=== PATIENT | male | born 1970 | race Caucasian/White ===

== ENCOUNTER 2016-10-07 11:02 | Emergency (ER) | payer OTHER ==
[~2016-10-07] VITALS: Ht 180.3 cm; Wt 110.7 kg
[~2016-10-07 11:02] MED LIST: PENI-82 PO
[2016-10-07 11:11] VITALS: TEMP 36.5; Ht 180.3 cm; Wt 110.7 kg
[2016-10-07] MEDS ORDERED: SODIUM CHLORIDE 0.9% 1000ML 1,000 ML IV STA (11:35)
[2016-10-07 11:44] VITALS: O2SAT 94
[2016-10-07] MEDS ORDERED: PAXIL PO (11:44)
[2016-10-07] MEDS ORDERED: TRAZODONE PO (11:44)
[2016-10-07] MEDS ORDERED: RISPERIDONE PO (11:44)
[2016-10-07] MEDS ORDERED: PRAZOSIN PO (11:44)
[2016-10-07] MEDS ORDERED: GABAPENTIN PO (11:44)
[2016-10-07 11:59] LABS: BASO % 0.2 %; BASO ABS # 0.01 K/uL (0-0.2); COMPLETE YES; EOS % 1.5 %; HEMATOCRIT 40.5 % (42-52); IG% 0.4 %; LYMPH % 27.2 %; LYMPH ABS # 1.28 K/uL (1.2-3.4); MEAN CELL VOLUME 85.4 fL (80-100); MEAN CORPUSCULAR HEMOGLOBIN 29.7 pg (25-34); MEAN CORPUSCULAR HGB CONC 34.8 g/dl (32-36); MEAN PLATELET VOLUME 10.3 fL (7.4-10.4); MONO % 7.2 %; NEUT % 63.5 %; PLATELET COUNT 190 K/uL (130-400); RED BLOOD COUNT 4.74 M/uL (4.7-6.1); WHITE BLOOD COUNT 4.71 K/uL (4.8-10.8)
[2016-10-07 12:15] LABS: BUN/CREATININE RATIO 14.7 (10-20); CALCIUM 8.7 mg/dl (8.5-10.1); CREATININE 1.2 mg/dl (0.60-1.40); POTASSIUM 4.1 mmol/L (3.5-5.1)
[2016-10-07 12:32] LABS: THYROID STIMULATING HORMONE 1.15 uIu/ml (0.300-4.500)
[2016-10-07 12:54] LABS: URINE APPEARANCE CLEAR (CLEAR); URINE BILIRUBIN NEG (NEG); URINE COLOR YELLOW; URINE NITRITE NEG (NEG); URINE PH 5.5 (4.5-7.5); URINE SPECIFIC GRAVITY 1.003 (1.000-1.030); UROBILINOGEN NEG (NEG)
[2016-10-07 12:59] LABS: MANUAL MICROSCOPIC REQUIRED? NO; REVIEW REQ? NO
[2016-10-07 14:15] VITALS: BP 125/76; PULSE 70; O2SAT 96
--- NOTE | 2016-10-07 17:16 | EMERGENCY ROOM VISIT NOTE ---
History Report prepared by Za: Ryan Rodriguez Under the Supervision of: Dr. Kashmir Fragoso M.D. First contact with patient: 11:35 Chief Complaint: SYNCOPE Stated Complaint: SYNCOPE Nursing Triage Summary: Alert and oriented. History of Present Illness The patient is a 46 year old male who presents to the Emergency Room with complaints of a syncopal episode that occurred prior to arrival this morning. The patient was here to get routine blood work done when he passed out. He notes that he had his blood taken and then went to stand up and started to get dizzy. He sat down for a bit, and then passed out, but he does not remember passing out. The patient was told that he passed out for approximately a minute. The patient has no syncope history. The patient did feel a bit off before passing out for a couple minutes. He is now starting to feel better. He has not had any recent illnesses or symptoms. The patient has not been around anyone who has been sick. He has not had any recent long car trips. The patient did not eat anything this morning. Pt denies headache, fevers, chills, diaphoresis, visual changes, neck pain, chest pain, breathing difficulties, nausea, vomiting, abdominal pain, back pain, melena, hematochezia, urinary symptoms, numbness, current weakness, lymphadenopathy, rash, or other complaints. Source of History: patient Onset: Prior to arrival this morning Position: other (global - syncopal episode) Symptom Intensity: passed out for around a minute Timing: other (episode) Associated Symptoms: + LOC Note: Associated symptoms: Dizziness prior to syncopal episode. Review of Systems See HPI for pertinent positives and negatives. A total of ten systems were reviewed and were otherwise negative. Past Medical & Surgical Surgical Problems: (1) Hx of appendectomy (2) S/P appendectomy Family History Diabetes mellitus Social History Smoking Status: Never Smoker Smokeless Tobacco Use: No Alcohol Use: none Marital Status: Occupation Status: student Current/Historical Medications Scheduled [Gabapentin], 1 TAB PO DAILY [Paxil], 1 TAB PO DAILY [Prazosin], 1 TAB PO HS [Risperidone], 1 TAB PO DIRECTED [Trazodone], 1 TAB PO HS Allergies Coded Allergies: No Known Allergies (Unverified , 10/07/16) Physical Exam Vital Signs Date Time Temp Pulse Resp B/P Pulse Ox O2 Delivery O2 Flow Rate FiO2 10/07/16 14:15 70 16 125/76 96 10/07/16 12:43 76 16 131/79 98 Room Air 10/07/16 11:44 94 Room Air 10/07/16 11:40 62 10/07/16 11:20 66 117/62 72 110/70 76 109/68 10/07/16 11:11 36.5 66 20 117/62 94 Room Air Physical Exam GENERAL: Awake, alert, well appearing, no distress HENT: Normocephalic, atraumatic. TM's normal. Oropharynx unremarkable. EYES: PERRL. EOMI. Normal conjunctiva. Sclera non-icteric. NECK: Supple. No nuchal rigidity. FROM. No JVD or bruit. RESPIRATORY: CTA CARDIAC: RRR. No murmur. ABDOMEN: Soft, non distended. No tenderness to palpation. No rebound or guarding. No masses. RECTAL: Deferred. MUSCULOSKELETAL: Unremarkable. No edema. No discoloration. Gross motor strength symmetric. NEURO: Cranial nerves 2-12 grossly intact. Normal sensorium. No sensory or motor deficits noted. Speech normal. No pronator drift. SKIN: No rash or jaundice noted. LYMPH: No adenopathy. Medical Decision & Procedures Laboratory Results 10/07/16 11:50 Red Blood Count 4.74, Mean Corpuscular Volume 85.4, Mean Corpuscular Hemoglobin 29.7, Mean Corpuscular Hemoglobin Concent 34.8, Mean Platelet Volume 10.3, Neutrophils (%) (Auto) 63.5, Lymphocytes (%) (Auto) 27.2, Monocytes (%) (Auto) 7.2, Eosinophils (%) (Auto) 1.5, Basophils (%) (Auto) 0.2, Neutrophils # (Auto) 2.99, Lymphocytes # (Auto) 1.28, Monocytes # (Auto) 0.34, Eosinophils # (Auto) 0.07, Basophils # (Auto) 0.01 10/07/16 11:50 Test 10/07/16 11:50 10/07/16 12:40 White Blood Count 4.71 K/uL (4.8-10.8) Red Blood Count 4.74 M/uL (4.7-6.1) Hemoglobin 14.1 g/dL (14.0-18.0) Hematocrit 40.5 % (42-52) Mean Corpuscular Volume 85.4 fL (80-100) Mean Corpuscular Hemoglobin 29.7 pg (25-34) Mean Corpuscular Hemoglobin Concent 34.8 g/dl (32-36) Platelet Count 190 K/uL (130-400) Mean Platelet Volume 10.3 fL (7.4-10.4) Neutrophils (%) (Auto) 63.5 % Lymphocytes (%) (Auto) 27.2 % Monocytes (%) (Auto) 7.2 % Eosinophils (%) (Auto) 1.5 % Basophils (%) (Auto) 0.2 % Neutrophils # (Auto) 2.99 K/uL (1.4-6.5) Lymphocytes # (Auto) 1.28 K/uL (1.2-3.4) Monocytes # (Auto) 0.34 K/uL (0.11-0.59) Eosinophils # (Auto) 0.07 K/uL (0-0.5) Basophils # (Auto) 0.01 K/uL (0-0.2) RDW Standard Deviation 42.1 fL (36.4-46.3) RDW Coefficient of Variation 13.6 % (11.5-14.5) Immature Granulocyte % (Auto) 0.4 % Immature Granulocyte # (Auto) 0.02 K/uL (0.00-0.02) Anion Gap 12.0 mmol/L (3-11) Est Creatinine Clear Calc Drug Dose 95.2 ml/min Estimated GFR () 82.4 Estimated GFR (Non- 71.1 BUN/Creatinine Ratio 14.7 (10-20) Calcium Level 8.7 mg/dl (8.5-10.1) Total Bilirubin 1.0 mg/dl (0.2-1) Direct Bilirubin 0.2 mg/dl (0-0.2) Aspartate Amino Transf (AST/SGOT) 52 U/L (15-37) Alanine Aminotransferase (ALT/SGPT) 65 U/L (12-78) Alkaline Phosphatase 63 U/L (45-117) Total Protein 7.2 gm/dl (6.4-8.2) Albumin 3.7 gm/dl (3.4-5.0) Thyroid Stimulating Hormone (TSH) 1.150 uIu/ml (0.300-4.500) Urine Color YELLOW Urine Appearance CLEAR (CLEAR) Urine pH 5.5 (4.5-7.5) Urine Specific [place] 1.003 (1.000-1.030) Urine Protein NEG (NEG) Urine Glucose (UA) NEG (NEG) Urine Ketones TRACE (NEG) Urine Occult Blood NEG (NEG) Urine Nitrite NEG (NEG) Urine Bilirubin NEG (NEG) Urine Urobilinogen NEG (NEG) Urine Leukocyte Esterase NEG (NEG) Laboratory results reviewed by me Medications Administered Medications (Trade) Dose Ordered Sig/Ly Route Start Time Stop Time Status Last Admin Dose Admin Sodium Chloride (Nss 1000ml) 1,000 ml @ 999 mls/hr Q1H1M STAT IV 10/07/16 11:35 10/07/16 12:35 DC 10/07/16 11:49 999 MLS/HR ECG Indication: syncope Rate (beats per minute): 64 Rhythm: normal sinus Findings: no acute ischemic change, other (nonspecific ST, prolonged QT interval 452 ms) Comparison ECG Date: no prior available ED Course 1135: Ordered NSS 1000 ml @ 999 mls/hr IV. 1209: The patient was evaluated in room C4. A complete history and physical exam was performed. 1358: I reevaluated the patient and he is resting comfortably. The patient verbally expressed understanding and agreement of the treatment plan. The patient will be discharged. Medical Decision Prior records/ancillary studies reviewed. Triage Nursing notes reviewed and agree them. Additional history obtained from the family. The patient's history was concerning for syncope. Differential diagnosis: Etiologies such as vasovagal event, infection, hypoglycemia, electrolyte abnormalities, cardiac sources, intracerebral event, toxicologic, neurologic, as well as others were entertained. Physical examination: As above. Normal. ER treatment provided: IV hydration with normal saline On reassessment the patient felt normal. Diagnostics interpretation by me: ECG: Normal sinus rhythm. The patient had a mild prolongation of his QT but there is no MS shortening. No ischemic change. No ectopy. Cardiac monitoring: The patient was placed on continuous cardiac monitoring and observed. It revealed a normal sinus rhythm without ectopy or evidence of dysrhythmia. The labs revealed Imaging studies: An unremarkable CBC and chemistry panel. Urinalysis negative. The patient had a syncopal episode after having blood work done. He noted a prodrome before the episode. He has been doing well the last few days. I discussed conservative management with him and close outpatient follow-up. He was in agreement. If he has any issues return she will come back to the Emergency Room for reevaluation. By the evaluation outlined above emergent etiologies such as infection, hypoglycemia, electrolyte abnormalities, cardiac sources, intracerebral event, toxicologic, neurologic,as well as others were deemed relatively unlikely. The patient and significant other were informed about the findings as listed above. All questions were answered and they were pleased with the treatment. Return instructions were outlined and the patient was discharged in stable condition. Outpatient prescription management: None Referral: The patient was referred back to his primary care physician for follow-up in 2 to 3 days for a recheck of the current condition. The chart was completed utilizing [employer] Speech voice recognition software. Grammatical errors, random word insertions, pronoun errors, and incomplete sentences are an occasional consequence of this system due to software limitations, ambient noise, and hardware issues. Any formal questions or concerns about the content, text, or information contained within the body of this dictation should be directly addressed to the physician for clarification. Impression Primary Impression: Syncope Scribe Attestation The scribe's documentation has been prepared under my direction and personally reviewed by me in its entirety. I confirm that the note above accurately reflects all work, treatment, procedures, and medical decision making performed by me. Departure Information Dispostion Home / Self-Care Referrals Bib Mann M.D.(OLIVIA) (PCP) Jacoby Magaña MD Wilt, Kathryn A, C.RGeoffreyNGeoffreyPGeoffrey Forms HOME CARE DOCUMENTATION FORM, IMPORTANT VISIT INFORMATION Patient Instructions My [facility] Additional Instructions SYNCOPE INSTRUCTIONS: Ibuprofen(Motrin, Advil) may be used for fever or pain. Use 600mg every six hours as needed. Take with food. Avoid using more than 2400mg in a 24 hour period. Do not use 2400mg per day for more than three consecutive days without physician direction. Prolonged inappropriate use can lead to stomach upset or ulcers. (AND/OR) Acetaminophen(Tylenol) may be used for fever or pain. Use 1000mg every six hours as needed. Avoid using more than 4000mg in a 24 hour period. Rest and drink plenty of fluids as tolerated. Continue current medications. Return to the ER for passing out, chest pain, headache, persistent vomiting, fevers, abdominal pain, chest pains, difficulty breathing, black or bloody stools, worsening of your condition, or as needed. Follow up with your primary physician in 2-3 days for a recheck of your current condition Call [facility] cardiology as discussed. The number is listed below under Dr. Magaña. Problem Qualifiers Primary Impression: Syncope Encounter type: initial encounter
== END 2016-10-07 14:17 | disposition home or self-care (01) ==
LOC: EDBD 11:02 → C.EDC 11:04
DX: R55 Syncope and collapse (principal); Z79.899 Other long term (current) drug therapy; Z98.890 Other specified postprocedural states; Z83.3 Family history of diabetes mellitus